=== PATIENT | female | born 1965 | race Caucasian/White ===

== ENCOUNTER 2023-04-14 07:03 | Day surgery (SDC) | payer MEDICARE, OTHER ==
[2023-04-14] VITALS (9 sets, daily range): BP systolic 133–169; BP diastolic 57–79
[~2023-04-14] VITALS: Ht 157.5 cm; Wt 98.4 kg
[2023-04-14] MEDS ORDERED: AMLODIPINE BESYL5 MG PO (07:17)
[2023-04-14] MEDS ORDERED: SEVEC800 PO (07:18)
[2023-04-14] MEDS ORDERED: MIDO5 PO (07:18)
[2023-04-14] MEDS ORDERED: NS 1,000 ML IV ONE ×2 (07:39→07:57)
[2023-04-14] MEDS ORDERED: TORS10 PO (07:46)
[2023-04-14] MEDS ORDERED: NITR.4SL SL (07:49)
[2023-04-14] MEDS ORDERED: Verapamil HCL 2.5 MG/ML 2ML Injection ONE (07:57)
[2023-04-14] MEDS ORDERED: Heparin Sodium 1000 Units/ML 10ML MDV ONE ×2 (07:57→08:54)
[2023-04-14] MEDS ORDERED: Nitroglycerin 2 MG/20 ML BTL ONE (07:57)
[2023-04-14] MEDS ORDERED: FentaNYL Citrate 50 MCG/ML 2 ML Injection ONE (08:26)
[2023-04-14] MEDS ORDERED: Midazolam HCl 1MG / ML 2ML Vial ONE (08:26)
[2023-04-14] MEDS ORDERED: HydrALAZINE HCl 20 MG / ML 1ML Vial ONE (09:08)
--- NOTE | 2023-04-14 10:01 | NUR ---
PATIENT ARRIVED TO RECOVERY ROOM, DROWSY BUT ABLE TO ANSWERE QUESTIONS APPROPRIATELY. L ARM BRUIT AND THRUSH PRESENT. VSS ON RA. PATIENT DENYING ANY PAIN.
--- NOTE | 2023-04-14 11:06 | NUR ---
PATIENT SITTING UPRIGHT IN BED. TOLERATING PO INTAKE WELL. L AV FISTULA BRUIT AND THRUSH PRESENT. NO SIGNS OF HEMATOMA. VSS ON RA. DISCHARGE INSTRUCTIONS REVIEWED WITH PATIENT AND SPOUSE. ALL QUESTIONS WERE ANSWERED.
--- NOTE | 2023-04-14 11:54 | NUR ---
PATIENT RESTING COMFORTABLY IN BED. L ARM FISTULA BRUIT AND THRUSH PRESENT. VSS ON RA. PIV REMOVED WITHOUT DIFFICULTY, CATHETER INTACT
--- NOTE | 2023-04-14 12:00 | NUR ---
PATIENT DISCHARGED HOME AT THIS TIME. ALL PATIENT BELONGINGS LEFT WITH PATIENT. PATIENT WHEELED TO HOSPITAL ENTRANCE AND SPOUSE ABLE TO PROVIDE TRANSPORTATION HOME
== END 2023-04-14 13:40 | disposition home or self-care (01) ==
LOC: MHTC 07:03
DX: T82.858A Stenosis of other vascular prosthetic devices, implants and grafts, initial encounter (principal); N18.6 End stage renal disease; I48.91 Unspecified atrial fibrillation; Z79.899 Other long term (current) drug therapy; Z87.891 Personal history of nicotine dependence; Z88.5 Allergy status to narcotic agent; Z88.8 Allergy status to other drugs, medicaments and biological substances
CPT/HCPCS: 36902; 76937; 99152; 99153; C1725; C1769; C1894; C2623; J0360; J1644; J2250; J3010; J7030; Q9967